=== PATIENT | female | born 1980 | race Two or more races ===

== ENCOUNTER 2022-09-24 07:55 | Outpatient (CLI) | payer OTHER | END 2022-09-24 08:05 | disposition home or self-care (01) | LOC: SONOGRAMA 07:55 | PROVIDERS: ATTEND Pathology Anatomic Pathology & Clinical Pathology | DX: D34 Benign neoplasm of thyroid gland (principal); E06.3 Autoimmune thyroiditis; E07.9 Disorder of thyroid, unspecified; E04.9 Nontoxic goiter, unspecified; E04.2 Nontoxic multinodular goiter ==